=== PATIENT | male | born 1970 | race Caucasian/White ===

== ENCOUNTER 2019-07-05 18:32 | Emergency (ER) | payer SELFPAY ==
[~2019-07-05] VITALS: Ht 170 cm; Wt 74.8 kg
[~2019-07-05 18:32] MED LIST: BUPR300T43 PO; LEVO75TA6 PO
--- NOTE | 2019-07-05 19:38 | ED General ---
General Chief Complaint: Cough/Cold/Flu Symptoms Stated Complaint: SOB, HEADACHE Nursing Triage Note: PT COMPLAINS OF COUGH, PAIN IN LEFT CHEST WHEN HE COUGHS, AND A HEADACHE. ON AMOXICILLIN FOR A SINUS INFECTION IN HIS EARS Nursing Sepsis Screen: No Definite Risk History of Present Illness Date Seen by Provider: Jul 05, 2019 Time Seen by Provider: 18:45 Initial Comments 49-year-old male presents for cough and right rib pain. He was diagnosed with a sinus infection and started on amoxicillin. He has been taking Tylenol and ibuprofen intermittently with no improvement in the rib pain. 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 He is unsure how long it has been present and it is non-tender. Timing/Duration: 3-4 Days Severity: Moderate Associated Systoms: Cough (nonproductive), Headaches; No Malaise, No Nausea/Vomiting, No Shortness of Air Allergies and Home Medications Allergies Coded Allergies: No Known Drug Allergies (Unverified , 08/23/17) Patient Home Medication List Home Medication List Reviewed: Yes Review of Systems Review of Systems Constitutional: no symptoms reported, see HPI Respiratory: see HPI, cough; No phlegm, No short of breath; other (right rib pain) Cardiovascular: no symptoms reported, see HPI; No chest pain Gastrointestinal: no symptoms reported, see HPI All Other Systems Reviewed Negative Unless Noted: Yes Past Bknkuhv-Qrbuii-Bwacem Hx Past Med/Social Hx: Reviewed Nursing Past Med/Soc Hx Patient Social History Alcohol Use: Denies Use Recreational Drug Use: No Smoking Status: Current Everyday Smoker Recent Foreign Travel: No Contact w/Someone Who Travel: No Recent Infectious Disease Expo: No Recent Hopitalizations: No Past Medical History Surgeries: Yes Ear Surgery, Tonsillectomy Respiratory: No Cardiac: No Neurological: No Genitourinary: No Gastrointestinal: No Musculoskeletal: No Endocrine: Yes Hypothyroidsim HEENT: No Cancer: No Psychosocial: Yes Depression Blood Disorders: No Adverse Reaction/Blood Tranf: No Physical Exam Vital Signs Vital Signs - First Documented 07/05/19 18:38 Temp 36.8 Pulse 84 Resp 16 B/P (MAP) 146/95 (112) Pulse Ox 97 O2 Delivery Room Air Capillary Refill : Less Than 3 Seconds Height, Weight, BMI Height: 5'6.00" Weight: 165lbs. oz. 74.428354bf; 25.00 BMI Method:Stated General Appearance: No Apparent Distress, WD/WN Eyes: Bilateral Eye Normal Inspection, Bilateral Eye PERRL, Bilateral Eye EOMI HEENT: PERRL/EOMI, TMs Normal, Normal ENT Inspection, Pharynx Normal, Other (trace frontal sinus tenderness. ) Respiratory: Chest Non Tender, Lungs Clear, Normal Breath Sounds, No Accessory Muscle Use Cardiovascular: Regular Rate, Rhythm, No Murmur, Normal Peripheral Pulses Gastrointestinal: Normal Bowel Sounds, Non Tender, Soft Back: No CVA Tenderness, No Vertebral Tenderness, Other (3X4 cm lipoma to left flank, non tender. No induration or fluctuance. ) Neurologic/Psychiatric: Alert, Oriented x3, No Motor/Sensory Deficits, Normal Mood/Affect Progress/Results/Core Measures Suspected Sepsis Recent Fever Within 48 Hours: No Infection Criteria Present: Documented Infection New/Unexplained Altered Menta: No Sepsis Screen: No Definite Risk SIRS Temperature: Pulse: 84 Respiratory Rate: 16 Blood Pressure 146 /95 Mean: 112 Results/Orders Micro Results Microbiology 07/05/19 Influenza Types A,B Antigen (MICKI) - Final, Complete My Orders Orders - JOSE ROBLES Influenza A And B Antigens (07/05/19 18:53) Chest Pa/Lat (2 View) (07/05/19 19:30) Vital Signs/I&O 07/05/19 18:38 Temp 36.8 Pulse 84 Resp 16 B/P (MAP) 146/95 (112) Pulse Ox 97 O2 Delivery Room Air Capillary Refill : Less Than 3 Seconds Blood Pressure Mean: 112 Diagnostic Imaging Diagonstic Imaging: Xray Plain Films/CT/US/NM/MRI: chest Comments NAME: OMAR CHAU [facility] REC#: [id number] PT STATUS: REG ER : 1970 PHYSICIAN: JOSE ROBLES ADMIT DATE: 07/05/19/ER Draft Date of Exam:07/05/19 CHEST PA/LAT (2 VIEW) INDICATION: Chest pain and dyspnea. PA and lateral views of the chest are obtained. COMPARISON: No previous study is available for comparison at this time. FINDINGS: Heart size and pulmonary vasculature are within normal limits, and the lungs are clear, bilaterally. IMPRESSION: Unremarkable chest. Dictated on workstation # [id number] Dict: 07/05/191941 Trans: 07/05/191943 [id number] Interpreted by: ANIA MCDONALD MD Electronically signed by: Reviewed: Reviewed by Me Departure Impression Primary Impression: Pleuritic chest pain Disposition: 01 HOME, SELF-CARE Condition: Improved Departure-Patient Inst. Decision time for Depature: 19:45 Referrals: [facility] [place] (PCP/Family) Primary Care Physician Patient Instructions: Pleuritic Chest Pain (DC) Add. Discharge Instructions: Use Tylenol 650 mg alternating with ibuprofen 600 mg every 4 hours for pain. For more severe pain, take the Tramadol 1 every 8 hours. If you need additional Tramadol, you will need to see your primary care provider. Use your inhaler every 4 hours as needed for cough and congestion. Follow-up with your primary care provider if symptoms are not improving or worsen. Use warm moist towels on the right chest wall for 20 min every 2 hours. Return to the emergency department for new, urgent health care problems. All discharge instructions reviewed with patient and/or family. Voiced understanding. JOSE ROBLES Jul 05, 2019 19:38
--- NOTE | 2019-07-05 19:44 | Diagnostic Imaging Report ---
INDICATION: Chest pain and dyspnea. PA and lateral views of the chest are obtained. COMPARISON: No previous study is available for comparison at this time. FINDINGS: Heart size and pulmonary vasculature are within normal limits, and the lungs are clear, bilaterally. IMPRESSION: Unremarkable chest. Dictated by: Dictated on workstation # [id number]
[2019-07-05] MEDS ORDERED: RX-ALBUTEROL INHALER (PROAIR) 8.5 GM IH STA (19:51)
[2019-07-05] MEDS ORDERED: RX-TRAMADOL 50 MG (ULTRAM) TAB PPK#4 PO STA (19:51)
[2019-07-05 19:55] VITALS: BP 141/91
--- OUTSIDE RECORDS SUMMARY | 2019-07-10 11:36 | XMS REPORT ---
Author Author Marcello CRUZ Organization [facility] Address [address] [place] [address] Care Team Providers Care Movie Star Name Role Phone KANNAN CRUZ Unavailable PROBLEMS Type Condition ICD9-CM Code [id number] Code Onset Dates Condition S tatus SNOMED Code Problem Acquired hypothyroidism E03.9 Active 470754031 Problem Recurrent major depressive disorder, remission s tatus unspecified F33.9 Active [id number] ALLERGIES No Known Allergies ENCOUNTERS Encounter Location Date Diagnosis [facility] [address] [facility] [id number] [address] [place] [id number] Aug, [facility] [address] [place] [id number] [address] [place] [id number] Aug, Polyuria R35.8 ; Weakness R5 3.1 ; Dizziness R42 ; Acquired hypothyroidism E03.9 ; Bilious vomiting with nausea R11.14 and Recurrent major depressive disorder, remission status unspecified F33.9 IMMUNIZATIONS No Known Immunizations SOCIAL HISTORY Never Assessed REASON FOR VISIT Physical, tested + for alcohol in urine, concerned about DM. MICHELLE Bello, Seizure activity last month 6 in one week. PLAN OF CARE Activity Details Follow Up 3 Months with Alana and evelyn delong eeded if not improving Reason:depression Pending Test UA LONG DIP (IN HOUSE) VITAL SIGNS Height 67 in 2017-08-20 Weight 169.6 lbs 2017-08-20 Temperature 98.8 degrees Fahrenheit 2017-08-20 Heart Rate 77 bpm 2017-08-20 Respiratory Rate 2017-08-20 Oximetry 99 % 2017-08-20 BMI 26.56 kg/m2 2017-08-20 Blood pressure systolic 136 mmHg 2017-08-20 Blood pressure diastolic 88 mmHg 2017-08-20 MEDICATIONS Medication Instructions Dosage Frequency Start Date End Date Duration S tatus Ondansetron HCl 4 MG Orally TID PRN 1 tablet Aug, 05 days Active Levothyroxine Sodium 75 MCG Orally Once a day 1 tab 24h Active Wellbutrin 100 by mouth 2 times a day 1 capsule 12h Active BuPROPion HCl ER (Smoking Det) 150 MG Orally twice a day 1 tablet in the morning 12h Aug, 45 days Active RESULTS No Results PROCEDURES Procedure Date Ordered Result Body Site URINALYSIS, AUTO, W/O SCOPE August 20, 2017 COMPLETE CBC W/AUTO DIFF WBC August 20, 2017 ASSAY THYROID STIM HORMONE August 20, 2017 COMPREHEN METABOLIC PANEL August 20, 2017 VENIPUNCT, ROUTINE* August 20, 2017 INSTRUCTIONS MEDICATIONS ADMINISTERED No Known Medications MEDICAL (GENERAL) HISTORY Type Description Date Medical History hypothyroidism Surgical History eardrum reconstruction
--- OUTSIDE RECORDS SUMMARY | 2019-07-10 11:36 | XMS REPORT ---
Author Author Marcello CRUZ Organization [facility] [place] Address [address] [place] [address] Care Team Providers Care Diet Supervisor Name Role Phone KANNAN CRUZ Unavailable PROBLEMS Type Condition ICD9-CM Code [id number] Code Onset Dates Condition S tatus SNOMED Code Problem Acquired hypothyroidism E03.9 Active 094114507 Problem Recurrent major depressive disorder, remission s tatus unspecified F33.9 Active [id number] ALLERGIES No Information ENCOUNTERS Encounter Location Date Diagnosis [facility] [place] [address] [facility] [id number] [address] [place] [phone] Aug, [facility] [place] [address] [place] [id number] [place] [id number] Aug, Polyuria R35.8 ; Weakness R5 3.1 ; Dizziness R42 ; Acquired hypothyroidism E03.9 ; Bilious vomiting with nausea R11.14 and Recurrent major depressive disorder, remission status unspecified F33.9 IMMUNIZATIONS No Known Immunizations SOCIAL HISTORY Never Assessed REASON FOR VISIT ER Records PLAN OF CARE VITAL SIGNS MEDICATIONS Unknown Medications RESULTS No Results PROCEDURES No Known procedures INSTRUCTIONS MEDICATIONS ADMINISTERED No Known Medications MEDICAL (GENERAL) HISTORY Type Description Date Medical History hypothyroidism Surgical History eardrum reconstruction
== END 2019-07-05 19:59 | disposition home or self-care (01) ==
LOC: EDUNIT# 18:32 → ER 18:33
DX: R07.81 Pleurodynia (principal); F17.200 Nicotine dependence, unspecified, uncomplicated
CPT/HCPCS: 71046; 87804

== ENCOUNTER 2019-07-16 22:50 | Emergency (ER) | payer SELFPAY ==
[~2019-07-16] VITALS: Ht 170 cm; Wt 82.8 kg
[2019-07-16] MEDS ORDERED: KETOROLAC 30 MG/ML VIAL IVP STA (23:10)
--- NOTE | 2019-07-16 23:17 | ED Cough/URI ---
General Chief Complaint: Cough/Cold/Flu Symptoms Stated Complaint: FEVER,SOB Nursing Triage Note: Patient ambulatory to ER room 7 with girlfriend with complaint of fever tonight. Patient states he was seen 1 and 1/2 weeks ago here in the ER and diagnosed with pleurisy. Patient states the pain to the right rib area has not improved and he has continued to have coughing. He states he did take Ibuprofen several hours ago. Sepsis Screen: No Definite Risk Source: patient (VERY DRAMATIC, TALKS NON-STOP, CONSANT MOVEMENTS, GIVES VAGUE HISTORY) History of Present Illness Date Seen by Provider: Jul 16, 2019 Time Seen by Provider: 23:00 Initial Comments PT ARRIVES VIA POV FROM HOME STATES "MY RIGHT LUNG IS KILLIN' ME" STATES HE HAS BEEN HAVING PAIN IN RIGHT LATERAL AND POSTERIOR CHEST "FOR A COUPLE OF WEEKS" STATES "I CAINT BREATHE BECAUSE IT HURTS" C/O PRODUCTIVE COUGH--UNKNOWN COLOR SPUTUM--"FOR A COUPLE OF WEEKS" STATES TONIGHT HE CHECKED HIS TEMP FOR THE FIRST TIME AND IT WAS 101--HAS NO IDEA IF HE HAS BEEN HAVING ANY SIGNS OF FEVER, OR SWEATS OR CHILLS, PRIOR TO TONIGHT--STATES "I DON'T KNOW" STATES HE HAS BEEN TAKING IBUPROFEN WITHOUT RELIEF--LAST DOSE SEVERAL HOURS AGO HAS NOT TAKEN ANYTHING ELSE FOR SYMPTOMS STATES HE WAS HERE "A COUPLE OF WEEKS AGO" FOR THIS PROBLEM AND WAS TOLD HE HAD PLEURISY--STATES HE WAS GIVEN AN INHALER AND TRAMADOL, BUT NO RX'S HAS NOT ATTEMPTED TO FOLLOW UP WITH ANYONE FOR THIS PROBLEM NO KNOWN SICK CONTACTS NO HISTORY OF RESPIRATORY PROBLEMS PT SMOKES 2 PPD, HAS HISTORY OF ALCOHOL AND DRUG ABUSE--DENIES ANY RECENT USE--STATES HE IS ON PROBATION. PT WAS SEEN HERE 07/05/19 FOR THIS PROBLEM AT THAT VISIT, HE HAD REPORTED THAT HE HAD BEEN SEEN AT SOMETIME PRIOR TO THAT VISIT FOR SINUS INFECTION AND EAR INFECTION AND HAD BEEN PRESCRIBED AMOXIL PT WAS DISMISSED WITH A TAKE HOME ALBUTEROL INHALER--WHICH HE HAS NOT BEEN USING, AND TAKE HOME PACK OF TRAMADOL. NO RX'S. PT HAS NOT FOLLOWED UP WITH HIS DR HE WAS ADVISED AT THAT VISIT. PCP: SANDRINE-ALLI, DESTINY CRUZ Allergies and Home Medications Allergies Coded Allergies: No Known Drug Allergies (Unverified , 08/23/17) Patient Home Medication List Home Medication List Reviewed: Yes Review of Systems Review of Systems Constitutional: see HPI, fever EENTM: no symptoms reported Respiratory: see HPI, cough, short of breath Cardiovascular: see HPI, chest pain Gastrointestinal: no symptoms reported; No abdominal pain, No nausea, No vomiting Genitourinary: no symptoms reported Musculoskeletal: see HPI Skin: no symptoms reported; No rash Psychiatric/Neurological: No Symptoms Reported, Anxiety Hematologic/Lymphatic: No Symptoms Reported Immunological/Allergic: no symptoms reported Past Isxodqr-Sjeffe-Gqlowf Hx Past Med/Social Hx: Reviewed and Corrections made Patient Social History Alcohol Use: Past History (HISTORY OF ABUSE--CLAIMS NO RECENT USE, HE IS ON PROBATION, PER PT 07/16/19) Recreational Drug Use: Yes (THC, COCAINE-DENIES IV USE OR RECENT USE-STATES HE IS ON PROBATION 07/16/19) Smoking Status: Current Everyday Smoker (>2 PPD) Type Used: Cigarettes (>2 PPD) 2nd Hand Smoke Exposure: Yes Recent Foreign Travel: No Contact w/Someone Who Travel: No Recent Infectious Disease Expo: No Recent Hopitalizations: No Physical Abuse: No Sexual Abuse: No Mistreated: No Fear: No Past Medical History Surgeries: Yes (LEFT EAR DRUM RECONSTRUCTION) Ear Surgery, Tonsillectomy Respiratory: No Cardiac: No Neurological: No Genitourinary: No Gastrointestinal: No Musculoskeletal: No Endocrine: Yes Hypothyroidsim HEENT: Yes (LEFT EAR DRUM RECONSTRUCTION) Cancer: No Psychosocial: Yes Anxiety, Depression Integumentary: No Blood Disorders: No Adverse Reaction/Blood Tranf: No Physical Exam Vital Signs - First Documented 07/16/19 22:55 Temp 36.6 Pulse 77 Resp 18 B/P (MAP) 145/96 (112) Pulse Ox 96 O2 Delivery Room Air Capillary Refill : Less Than 3 Seconds Height: 5'6.00" Weight: 165lbs. oz. 74.075203ul; 28.00 BMI Method:Stated General Appearance: WD/WN, no apparent distress, other (ANXIOUS, VERY DRAMATIC, TALKS NON-STOP, CONSTANT MOVEMENTS) HEENT: PERRL/EOMI Neck: normal inspection Respiratory: normal breath sounds, no respiratory distress, no accessory muscle use, other (TENDERNESS TO RIGHT POSTERIOR CHEST/RIBS/CVA AREA. NO CREPITANCE, NO SUB Q AIR. NO EXTERNAL EVIDENCE OF TRAUMA. 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, no motor/sensory deficits, alert, oriented x 3 Skin: normal color, warm/dry; No rash; tattoos/piercings (EXTENSIVE TATTOOS) Focused Exam Lactate Level 07/16/19 23:21: Lactic Acid Level 2.33*H Lactic Acid Level Laboratory Tests Test 07/16/19 23:21 Lactic Acid Level 2.33 MMOL/L (0.50-2.00) *H Progress/Results/Core Measures Suspected Sepsis Recent Fever Within 48 Hours: Yes Infection Criteria Present: None New/Unexplained Altered Menta: No Sepsis Screen: No Definite Risk SIRS Temperature: Pulse: 77 Respiratory Rate: 18 Laboratory Tests 07/16/19 23:21: White Blood Count 12.2H Blood Pressure 145 /96 Mean: 112 07/16/19 23:21: Lactic Acid Level 2.33*H Laboratory Tests 07/16/19 23:21: Creatinine 1.09, Platelet Count 298, Total Bilirubin 0.2 Results/Orders Lab Results Laboratory Tests Test 07/16/19 23:21 07/16/19 23:39 Range/Units White Blood Count 12.2 H 4.3-11.0 10^3/uL Red Blood Count 5.21 4.35-5.85 10^6/uL Hemoglobin 15.6 13.3-17.7 G/DL Hematocrit 46 40-54 % Mean Corpuscular Volume 89 80-99 FL Mean Corpuscular Hemoglobin 30 25-34 PG Mean Corpuscular Hemoglobin Concent 34 32-36 G/DL Red Cell Distribution Width 13.6 10.0-14.5 % Platelet Count 298 130-400 10^3/uL Mean Platelet Volume 9.3 7.4-10.4 FL Neutrophils (%) (Auto) 59 42-75 % Lymphocytes (%) (Auto) 26 12-44 % Monocytes (%) (Auto) 8 0-12 % Eosinophils (%) (Auto) 7 0-10 % Basophils (%) (Auto) 1 0-10 % Neutrophils # (Auto) 7.2 1.8-7.8 X 10^3 Lymphocytes # (Auto) 3.2 1.0-4.0 X 10^3 Monocytes # (Auto) 0.9 0.0-1.0 X 10^3 Eosinophils # (Auto) 0.8 H 0.0-0.3 10^3/uL Basophils # (Auto) 0.2 H 0.0-0.1 10^3/uL Sodium Level 140 135-145 MMOL/L Potassium Level 3.9 3.6-5.0 MMOL/L Chloride Level 104 98-107 MMOL/L Carbon Dioxide Level 23 21-32 MMOL/L Anion Gap 13 5-14 MMOL/L Blood Urea Nitrogen 16 7-18 MG/DL Creatinine 1.09 0.60-1.30 MG/DL Estimat Glomerular Filtration Rate > 60 BUN/Creatinine Ratio 15 Glucose Level 115 H 70-105 MG/DL Lactic Acid Level 2.33 *H 0.50-2.00 MMOL/L Calcium Level 9.6 8.5-10.1 MG/DL Corrected Calcium 9.3 8.5-10.1 MG/DL Magnesium Level 2.0 1.6-2.4 MG/DL Total Bilirubin 0.2 0.1-1.0 MG/DL Aspartate Amino Transf (AST/SGOT) 17 5-34 U/L Alanine Aminotransferase (ALT/SGPT) 14 0-55 U/L Alkaline Phosphatase 99 40-136 U/L B-Type Natriuretic Peptide < 10.0 <100.0 PG/ML Total Protein 7.8 6.4-8.2 GM/DL Albumin 4.4 3.2-4.5 GM/DL Acetaminophen Level < 10 L 10-30 UG/ML Serum Alcohol < 10 <10 MG/DL Urine Color YELLOW Urine Clarity CLEAR Urine pH 6.5 5-9 Urine Specific [place] >=1.030 1.016-1.022 Urine Protein NEGATIVE NEGATIVE Urine Glucose (UA) NEGATIVE NEGATIVE Urine Ketones NEGATIVE NEGATIVE Urine Nitrite NEGATIVE NEGATIVE Urine Bilirubin NEGATIVE NEGATIVE Urine Urobilinogen 0.2 < = 1.0 MG/DL Urine Leukocyte Esterase NEGATIVE NEGATIVE Urine RBC (Auto) NEGATIVE NEGATIVE Urine RBC NONE /HPF Urine WBC RARE /HPF Urine Crystals NONE /LPF Urine Bacteria TRACE /HPF Urine Casts NONE /LPF Urine Mucus NEGATIVE /LPF Urine Culture Indicated NO Urine Opiates Screen NEGATIVE NEGATIVE Urine Oxycodone Screen NEGATIVE NEGATIVE Urine Methadone Screen NEGATIVE NEGATIVE Urine Propoxyphene Screen NEGATIVE NEGATIVE Urine Barbiturates Screen NEGATIVE NEGATIVE Ur Tricyclic Antidepressants Screen NEGATIVE NEGATIVE Urine Phencyclidine Screen NEGATIVE NEGATIVE Urine Amphetamines Screen NEGATIVE NEGATIVE Urine Methamphetamines Screen NEGATIVE NEGATIVE Urine Benzodiazepines Screen NEGATIVE NEGATIVE Urine Cocaine Screen NEGATIVE NEGATIVE Urine Cannabinoids Screen NEGATIVE NEGATIVE Micro Results Microbiology 07/16/19 Influenza Types A,B Antigen (MICKI) - Final, Complete My Orders Orders - KAPIL CHANEY DO Influenza A And B Antigens (07/16/19 22:58) Monitor-Rhythm Ecg Trace Only (07/16/19 22:59) Ed Iv/Invasive Line Start (07/16/19 23:10) Acetaminophen (07/16/19 23:10) Alcohol (07/16/19 23:10) BNP (07/16/19 23:10) Cbc With Automated Diff (07/16/19 23:10) Comprehensive Metabolic Panel (07/16/19 23:10) Drug Screen Stat (Urine) (07/16/19 23:10) Lactic Acid Analyzer (07/16/19 23:10) Magnesium (07/16/19 23:10) Ua Culture If Indicated (07/16/19 23:10) Blood Culture (07/16/19 23:10) Chest Pa/Lat (2 View) (07/16/19 23:10) Ketorolac Injection (Toradol Injection) (07/16/19 23:10) Ct Angio Chest W (07/17/19 00:08) Iohexol Injection (Omnipaque 350 Mg/Ml 1 (07/17/19 00:45) Received Contrast (Hold Metformin- Contr (07/17/19 00:45) Ns (Ivpb) (Sodium Chloride 0.9% Ivpb Bag (07/17/19 00:45) Medications Given in ED Current Medications Medications Dose Ordered Sig/Uriah Route Start Time Stop Time Status Last Admin Dose Admin Iohexol 100 ml ONCE ONCE IV 07/17/19 00:45 07/17/19 00:46 DC 07/17/19 00:34 100 ML Sodium Chloride 100 ml ONCE ONCE IV 07/17/19 00:45 07/17/19 00:46 DC 07/17/19 00:34 80 ML Vital Signs/I&O 07/16/19 22:55 Temp 36.6 Pulse 77 Resp 18 B/P (MAP) 145/96 (112) Pulse Ox 96 O2 Delivery Room Air Capillary Refill : Less Than 3 Seconds Blood Pressure Mean: 112 Progress Note : Progress Note NO COUGH OR DYSPNEA AT ANY TIME VITALS STABLE NO FEVER Diagnostic Imaging Comments CXR--? RML INFILTRATE ? PENDING RADIOLOGIST REVIEW CT CHEST ANGIOGRAM--NO P.E. OR ANY OTHER ABNORMALITY. PER [facility] VIA FAX AT [id number] Reviewed: Reviewed by Me Departure Impression Primary Impression: Bronchitis Additional Impression: PLEURITIC PAIN OF RIGHT CHEST Disposition: HOME, SELF-CARE Condition: Stable Departure-Patient Inst. Referrals: [facility] (PCP/Family) Primary Care Physician Patient Instructions: Acute Bronchitis, Adult (DC), Pleuritic Chest Pain (DC) Add. Discharge Instructions: LOTS OF FLUIDS TYLENOL AND MOTRIN NEEDED FOR PAIN OR FEVER FOLLOW UP WITH YOUR DR THIS WEEK FOR FURTHER CARE--CALL IN AM TO MAKE AN APPOINTMENT All discharge instructions reviewed with patient and/or family. Voiced understanding. Scripts Benzonatate (TESSALON PERLES) 100 Mg Capsule 100-200 MG PO TID, #40 CAP Prov: KAPIL CHANEY DO 07/17/19 Guaifenesin/Dextromethorphan (Mucinex Dm ER 1,200-60 mg Tab) 1 Each Tbmp.12hr 1 EACH PO BID, #20 EA Prov: KAPIL CHANEY DO 07/17/19 Methylprednisolone (Medrol) 4 Mg Tab.ds.pk 4 MG PO UD for 6 Days, #21 PKG PER DOSE PACK INSTRUCTIONS Prov: KAPIL CHANEY DO 07/17/19 Doxycycline Hyclate (Doxycycline Hyclate) 100 Mg Tablet 100 MG PO BID, #20 TAB 0 Refills Prov: KAPIL CHANEY DO 07/17/19 KAPIL CHANEY DO Jul 16, 2019 23:17
[2019-07-16 23:33] LABS: BASOPHILS # (AUTO) 0.2 10^3/uL (0.0-0.1); BASOPHILS % (AUTO) 1 % (0-10); EOSINOPHILS # (AUTO) 0.8 10^3/uL (0.0-0.3); EOSINOPHILS % (AUTO) 7 % (0-10); HEMATOCRIT 46 % (40-54); HEMOGLOBIN 15.6 G/DL (13.3-17.7); LYMPHOCYTES # (AUTO) 3.2 X 10^3 (1.0-4.0); LYMPHOCYTES % (AUTO) 26 % (12-44); MEAN CORPUSCULAR HEMOGLOBIN 30 PG (25-34); MEAN CORPUSCULAR HGB CONC 34 G/DL (32-36); MEAN CORPUSCULAR VOLUME 89 FL (80-99); MEAN PLATELET VOLUME 9.3 FL (7.4-10.4); MONOCYTES # (AUTO) 0.9 X 10^3 (0.0-1.0); MONOCYTES % (AUTO) 8 % (0-12); NEUTROPHILS # (AUTO) 7.2 X 10^3 (1.8-7.8); NEUTROPHILS % (AUTO) 59 % (42-75); PLATELET COUNT 298 10^3/uL (130-400); RED CELL DISTRIBUTION WIDTH 13.6 % (10.0-14.5); WHITE BLOOD COUNT 12.2 10^3/uL (4.3-11.0)
[2019-07-16 23:51] LABS: BILIRUBIN,URINE NEGATIVE (NEGATIVE); CLARITY,URINE CLEAR; COLOR,URINE YELLOW; GLUCOSE, URINE (UA) NEGATIVE (NEGATIVE); KETONES,URINE NEGATIVE (NEGATIVE); LEUKOCYTE ESTERASE ,URINE NEGATIVE (NEGATIVE); NITRITE,URINE NEGATIVE (NEGATIVE); PH,URINE 6.5 (5-9); PROTEIN,URINE NEGATIVE (NEGATIVE)
[2019-07-17 00:03] LABS: ALANINE AMINOTRANSFERASE 14 U/L (0-55); ALBUMIN 4.4 GM/DL (3.2-4.5); ALKALINE PHOSPHATASE 99 U/L (40-136); BILIRUBIN,TOTAL 0.2 MG/DL (0.1-1.0); BUN/CREATININE RATIO 15; CALCIUM 9.6 MG/DL (8.5-10.1); CARBON DIOXIDE 23 MMOL/L (21-32); CHLORIDE 104 MMOL/L (98-107); CREATININE SERUM 1.09 MG/DL (0.60-1.30); GFR ESTIMATED > 60; GLUCOSE 115 MG/DL (70-105); POTASSIUM 3.9 MMOL/L (3.6-5.0); SODIUM 140 MMOL/L (135-145); TOTAL PROTEIN 7.8 GM/DL (6.4-8.2)
[2019-07-17 00:04] LABS: AMPHETAMINE SCREEN, URINE NEGATIVE (NEGATIVE); BARBITURATE SCREEN URINE NEGATIVE (NEGATIVE); BENZODIAZEPINES SCREEN URINE NEGATIVE (NEGATIVE); CANNABINOID SCREEN, URINE NEGATIVE (NEGATIVE); COCAINE SCREEN URINE NEGATIVE (NEGATIVE); METHADONE STAT NEGATIVE (NEGATIVE); OPIATE SCREEN URINE NEGATIVE (NEGATIVE); OXYCODONE STAT NEGATIVE (NEGATIVE); PROPOXYPHENE STAT NEGATIVE (NEGATIVE); TRICYCLIC ANTIDEPRESSANTS SCRE NEGATIVE (NEGATIVE)
[2019-07-17 00:08] LABS: ACETAMINOPHEN < 10 UG/ML (10-30)
[2019-07-17 00:15] LABS: WBC,URINE RARE /HPF
[2019-07-17 00:16] LABS: BACTERIA,URINE TRACE /HPF
[2019-07-17 00:19] LABS: METHAMPHETAMINE SCREEN URINE S NEGATIVE (NEGATIVE)
[2019-07-17] MEDS ORDERED: NS 100 ML (IVPB) BAG IV ONE (00:45)
[2019-07-17] MEDS ORDERED: HOLD METFORMIN - RECEIVED CONTRAST 20 ML VIAL IV SCH (00:45)
[2019-07-17] MEDS ORDERED: IOHEXOL 350 MG/ML 100 ML (OMNIPAQUE 350) VIAL IV ONE (00:45)
[2019-07-17] MEDS ORDERED: GUAI1TBM19 PO (01:11)
[2019-07-17] MEDS ORDERED: BENZ100C18 PO (01:11)
[2019-07-17] MEDS ORDERED: METH4TAB PO (01:11)
[2019-07-17] MEDS ORDERED: DOXY100T2 PO (01:11)
[2019-07-17] MEDS ORDERED: cefTRIAXone 1,000 MG IV (ROCEPHIN) VIAL ONE (01:12)
[2019-07-17] MEDS ORDERED: WATER (STERILE) FOR INJECTION 10 ML ONE (01:12)
[2019-07-17] MEDS ORDERED: cefTRIAXone FOR IV USE 1,000 MG in WATER (STERILE) FOR INJECTION 10 ML IV ONE (01:15)
[2019-07-17 01:35] VITALS: BP 123/93
--- NOTE | 2019-07-17 06:59 | Diagnostic Imaging Report ---
PROCEDURE: CT angiography Chest TECHNIQUE: After intravenous administration of contrast, thin section axial CT angiography of the chest was performed. 3D MIP reconstructions were made. All CT scans use one or more of the following dose optimizing techniques: automated exposure control, MA and/or KvP adjustment based on a patient size and exam type, or iterative reconstruction. INDICATION: Cough and congestion. COMPARISON: None available. FINDINGS: Vasculature: There is suboptimal opacification of pulmonary vasculature which limits assessment of the segmental and subsegmental pulmonary arteries. Allowing for this, no pulmonary emboli present in the pulmonary trunk, main pulmonary arteries or lobar pulmonary arteries. No features of right ventricular strain or pulmonary hypertension. Thoracic aorta is normal in caliber. No aortic dissection or pseudoaneurysm. Heart and mediastinum: Visualized thyroid is normal. No supraclavicular, axillary, or intra-thoracic lymphadenopathy. The heart is normal in size without pericardial effusion. Pleura: No pleural effusion or pneumothorax. Lungs and airway: No endoluminal lesion in the trachea or central bronchi. Moderate centrilobular emphysema. No pulmonary mass, nodule or consolidation. Upper abdomen: Allowing for the phase of contrast, no acute abnormality in the upper abdomen is seen. Musculoskeletal: No concerning osseous lesion. IMPRESSION: 1. No central pulmonary emboli. Suboptimal opacification of the peripheral vasculature limits assessment of the smaller pulmonary arteries. 2. No other acute process in the chest. 3. Findings are in agreement with the preliminary report. Dictated by: Dictated on workstation # [id number]
--- NOTE | 2019-07-17 07:05 | Diagnostic Imaging Report ---
CHEST PA/LAT (2 VIEW) Indication: Cough and congestion Comparison: 07/05/2019 Findings: No pulmonary mass or consolidation. No pleural effusion or pneumothorax. Normal heart size and mediastinal contours. Impression: No acute cardiopulmonary process. Dictated by: Dictated on workstation # [id number]
== END 2019-07-17 01:38 | disposition home or self-care (01) ==
LOC: EDUNIT# 22:50 → ER 22:53
DX: J40 Bronchitis, not specified as acute or chronic (principal); R07.81 Pleurodynia; F17.210 Nicotine dependence, cigarettes, uncomplicated
CPT/HCPCS: 36415; 71046; 71275; 80053; 80306; 80320; 80329; 81000; 83605; 83735; 83880; 85025; 87040; 87804; 93041